=== PATIENT | male | born 1960 ===

== ENCOUNTER 2018-03-15 21:15 | Emergency (ER) | payer MEDICAID ==
[2018-03-15 21:18] VITALS: BMI 31.6
[2018-03-15] MEDS ORDERED: Sodium Chloride 0.9% 1,000 ML IV STA (22:08)
[2018-03-15] MEDS ORDERED: Famotidine 20mg/50ml Premix IVPB STA (22:10)
[2018-03-15] MEDS ORDERED: Famotidine 20mg/50ml 20 MG/50 ML BAG IVPB ONE (22:17)
--- NOTE | 2018-03-15 22:17 | ED PDOC ---
Syncope/Near Syncope/Dizziness Time Seen by Provider: 03/15/18 21:44 Chief Complaint (Nursing): Chest Pain Chief Complaint (Provider): Dizziness History Per: Patient History/Exam Limitations: no limitations Onset/Duration Of Symptoms: Hrs (today) Current Symptoms Are (Timing): Better Fall Associated With With Symptoms: No Additional Complaint(s): Saw Lee is a 57 year old male, with a past medical history of vertigo, diabetes and hypertension, who presents to the emergency department via EMS for dizziness like room spinning associated with light sensitivity onset prior to arrival. Patient reports he was eating at a restaurant when he suddenly felt dizzy and nauseous. Patient states dizziness is worst with movement. He is also complaining of upper abdominal pain and left shoulder pain which has improved since onset. Patient states he had a similar episode in the past and was told it was a mini stroke but was not placed on medications. 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 No further medical complaints. PMD: [facility] in [place]. NIH 0 and symptoms similar to his vertigo. Not tpa candidate. NIHSS Stroke Scale - Date/Time Evaluation Performed Date Performed: 03/15/18 Time Performed: 21:46 When Was NIHSS Performed: Baseline - How Severe is the Stroke Level of Consciousness: 0=Alert LOC to Questions: 0=Both comments correct LOC to commands: 0=Obeys both correctly Best Gaze: 0=Normal Visual: 0=No visual loss Facial: 0=Normal Motor Arm - Left: 0=No drift Motor Arm - Right: 0=No drift Motor Leg - Left: 0=No drift Motor Leg - Right: 0=No drift Limb Ataxia: 0=Absent Sensory: 0=Normal Best Language: 0=No aphasia Dysarthia: 0=Normal articulation Extinction & Inattention (Neglect): 0=Normal, no object Score: 0 Past Medical History Reviewed: Historical Data, Nursing Documentation, Vital Signs Vital Signs: Last Vital Signs Temp 98.3 F 03/15/18 21:20 Pulse 92 H 03/15/18 21:50 Resp 23 03/15/18 21:50 BP 158/102 H 03/15/18 21:50 Pulse Ox 96 03/15/18 21:50 - Medical History PMH: Diabetes, HTN - Surgical History Surgical History: No Surg Hx - Family History Family History: States: No Known Family Hx - Living Arrangements Living Arrangements: With Family - Social History Current smoker - smoking cessation education provided: No Alcohol: None Drugs: Denies - Allergies Allergies/Adverse Reactions: Allergies Allergy/AdvReac Type Severity Reaction Status Date / Time No Known Allergies Allergy Verified 03/15/18 21:18 Review of Systems ROS Statement: Except As Marked, All Systems Reviewed And Found Negative Cardiovascular: Negative for: Chest Pain Respiratory: Negative for: Shortness of Breath Gastrointestinal: Positive for: Nausea, Abdominal Pain. Negative for: Vomiting , Diarrhea Musculoskeletal: Positive for: Shoulder Pain (left ) Neurological: Positive for: Dizziness. Negative for: Weakness, Numbness (or tingling), Headache Physical Exam - Reviewed Nursing Documentation Reviewed: Yes Vital Signs Reviewed: Yes - Physical Exam Appears: Positive for: Non-toxic Head Exam: Positive for: ATRAUMATIC, NORMOCEPHALIC Skin: Positive for: Normal Color, Warm, Dry Eye Exam: Positive for: Normal appearance, EOMI, PERRL ENT: Positive for: Normal ENT Inspection. Negative for: Nasal Congestion Neck: Positive for: Painless ROM, Supple Cardiovascular/Chest: Positive for: Regular Rate, Rhythm. Negative for: Murmur Respiratory: Positive for: Normal Breath Sounds. Negative for: Respiratory Distress Gastrointestinal/Abdominal: Positive for: Soft, Tenderness (mild tenderness to upper abdomen) Back: Positive for: Normal Inspection. Negative for: L CVA Tenderness, R CVA Tenderness, Vertebral Tenderness Extremity: Positive for: Normal ROM (upper and lower extremities). Negative for : Tenderness, Deformity, Swelling Neurologic/Psych: Positive for: Alert, drug coordinator II-XII (normal), Oriented (x3). Negative for: Motor/Sensory Deficits, Aphasia, Facial Droop - Laboratory Results Result Diagrams: 03/15/18 23:22 03/15/18 23:22 Interpretation Of Abn Labs: 12.5 wbc - ECG ECG: Positive for: Interpreted By Me, Viewed By Me ECG Rhythm: Positive for: Sinus Rhythm (q waves inferior) O2 Sat by Pulse Oximetry: 96 (RA) Pulse Ox Interpretation: Normal - Radiology X-Ray: Interpreted by Me, Viewed By Me X-Ray Interpretation: No Acute Disease - CT Scan/US ct Other Rad Studies (CT/US): Read By Radiologist Other Rad Interpretation: no acute - Progress ED Course And Treament: 2355: Dr. Lee to fu on ct. Re-eval. Medical Decision Making Medical Decision Making: Time: 21:44 Initial Impression: Vertigo Initial Plan: --Type and screen --Head w/o contrast [CT] --EKG --CMP --Hemoglobin A1C --Lipase --Lipid Panel --Troponin I --CBC w/ differential --PTT --PT --Chest portable [RAD] --Antivert 25 mg PO --Sodium Chloride 1,000 ml IV 1,000 mls/hr --Pepcid 20 mg IVP --Zofran Inj 4 mg IV --Reevaluation 2308 CT HEAD FINDINGS: Brain: Unremarkable. No hemorrhage. No significant white matter disease. No edema. Ventricles: Unremarkable. No ventriculomegaly. Bones/joints: Unremarkable. No acute fracture. Soft tissues: Unremarkable. Sinuses: Unremarkable as visualized. No acute sinusitis. Mastoid air cells: Unremarkable as visualized. No mastoid effusion. IMPRESSION: No evidence of an acute intracranial abnormality ~ Scribe Attestation: Documented by Ricardo Mota and Angelica Ashford, acting as a scribe for Federico Moses MD. Provider Scribe Attestation: All medical record entries made by the Scribe were at my direction and personally dictated by me. I have reviewed the chart and agree that the record accurately reflects my personal performance of the history, physical exam, medical decision making, and the department course for this patient. I have also personally directed, reviewed, and agree with the discharge instructions and disposition. Disposition - Clinical Impression Clinical Impression: Abdominal pain, Dizziness - Patient ED Disposition Is Patient to be Admitted: Transfer of Care - Disposition Disposition: Transfer of Care Disposition Time: 00:05 Condition: STABLE Patient Signed Over To: Jesus,Vaughn rTPA Inclusion/Exclusion - Refusal of Treatment Patient Refused Treatment: No - Inclusion Criteria for Altepase Patient is 18 years or Older: Yes Clinical DX Ischemic Stroke Cause Neurological Deficit: No Time of Onset Established Less Than 270 Mins Before TX Begin: Yes Risk/Benefit Discussed With Patient/Family Member Present: No
--- NOTE | 2018-03-15 23:08 | CT ---
EXAM: CT Head Without Intravenous Contrast CLINICAL HISTORY: 57 years old, male; Pain; Headache; Other: High BP TECHNIQUE: Axial computed tomography images of the head/brain without intravenous contrast. All CT scans at this facility use one or more dose reduction techniques, viz.: automated exposure control; ma/kV adjustment per patient size (including targeted exams where dose is matched to indication; i.e. head); or iterative reconstruction technique. Coronal and sagittal reformatted images were created and reviewed. COMPARISON: No relevant prior studies available. FINDINGS: Brain: Unremarkable. No hemorrhage. No significant white matter disease. No edema. Ventricles: Unremarkable. No ventriculomegaly. Bones/joints: Unremarkable. No acute fracture. Soft tissues: Unremarkable. Sinuses: Unremarkable as visualized. No acute sinusitis. Mastoid air cells: Unremarkable as visualized. No mastoid effusion. IMPRESSION: No evidence of an acute intracranial abnormality.
[2018-03-15 23:31] LABS: BASO # 0.1 K/uL (0.0-0.2); BASO % 0.7 % (0.0-2.0); EOS # 0.1 K/uL (0.0-0.7); EOS % 0.7 % (0.0-4.0); HEMOGLOBIN 14.4 g/dL (12.0-18.0); LYMPH # 2.2 K/uL (1.0-4.3); LYMPH % 17.8 % (20.0-40.0); MEAN CELL VOLUME 85.5 fl (80.0-94.0); MEAN CORPUSCULAR HEMOGLOBIN 29.2 pg (27.0-31.0); MEAN CORPUSCULAR HGB CONC 34.1 g/dL (33.0-37.0); MEAN PLATELET VOLUME 8.4 fl (7.2-11.7); MONO # 0.9 K/uL (0.0-0.8); MONO % 6.8 % (0.0-10.0); NEUT # 9.3 K/uL (1.8-7.0); NRBC % 0.2 % (0.0-0.0); RBC 4.92 Mil/uL (4.40-5.90); WHITE BLOOD COUNT 12.5 K/uL (4.8-10.8)
[2018-03-15 23:40] LABS: ALB/GLOB RATIO 1.3 (1.0-2.1); ALBUMIN 4.3 g/dL (3.5-5.0); ALT/SGPT 57 U/L (21-72); AST/SGOT 36 U/L (17-59); BLOOD UREA NITROGEN 17 mg/dl (9-20); CALCIUM 9.3 mg/dL (8.4-10.2); GFR AFRICAN-AMERICAN > 60; GFR NON-AFRICAN AMERICAN > 60; HDL CHOLESTEROL 18 MG/DL (30-70); LIPASE 67 U/L (23-300)
[2018-03-15 23:46] LABS: PARTIAL THROMBOPLASTIN TIME 28.9 Seconds (25.6-37.1); PROTHROMBIN TIME 11.1 Seconds (9.8-13.1)
[2018-03-15 23:52] LABS: LDL CHOLESTEROL 45 mg/dL (0-129)
[2018-03-16] MEDS ORDERED: Iohexol 240 (50 ml) PO ONE (00:03)
--- NOTE | 2018-03-16 00:22 | ED PDOC ---
- Laboratory Results Result Diagrams: 03/15/18 23:22 03/15/18 23:22 - ECG O2 Sat by Pulse Oximetry: 96 (RA) Medical Decision Making Medical Decision Makin Patient signed out to this provider from Dr. Moses pending CT, re-eval, and final disposition. 0341 CT FINDINGS: Lung bases: There is minimal bibasilar atelectasis. ABDOMEN: Liver: There is a diffuse decrease in hepatic parenchymal density, consistent with fatty infiltration. There is diffuse mild enlargement of the liver measuring 21 cm. Gallbladder and bile ducts: Unremarkable. No calcified stones. No ductal dilation. Pancreas: Unremarkable. No mass. No ductal dilation. Spleen: Unremarkable. No splenomegaly. Adrenals: Unremarkable. No mass. Kidneys and ureters: Unremarkable. No solid mass. No hydronephrosis. Stomach and bowel: No obstruction. No mucosal thickening. Mild diverticulosis is present in the sigmoid and descending colon. There is no evidence of diverticulitis. PELVIS: Appendix: No findings to suggest acute appendicitis. The appendix is mildly distended with gas measuring up to 7 mm.There is no evidence of adjacent inflammatory stranding. Bladder: Unremarkable. No mass. Reproductive: Unremarkable as visualized. ABDOMEN and PELVIS: Intraperitoneal space: Unremarkable. No free air. No significant fluid collection. Bones/joints: No acute fracture. No dislocation. Soft tissues: Unremarkable. Vasculature: The aorta demonstrates mild atherosclerotic calcification. No abdominal aortic aneurysm. Lymph nodes: Unremarkable. No enlarged lymph nodes. IMPRESSION: No acute findings. Mild nonspecific hepatomegaly with fatty infiltration. Diverticulosis without acute diverticulitis 0350 Upon re-evaluation patient is feeling much better. Patient is able to ambulate around ED and notes no symptoms currently. Patient is tolerating PO and vital signs have improved. Advised follow up with PCP in 1-2 days. Return precautions given and patient verbalized agreement. Patient is stable for discharge home. Dx: vertigo Scribe Attestation: Documented by Angelica Ashford acting as a scribe for Vaughn Lee MD. MD Monroyibshar Attestation: All medical record entries made by the Scribe were at my direction and personally dictated by me. I have reviewed the chart and agree that the record accurately reflects my personal performance of the history, physical exam, medical decision making, and the department course for this patient. I have also personally directed, reviewed, and agree with the discharge instructions and disposition. Disposition - Clinical Impression Clinical Impression: Abdominal pain, Dizziness, Vertigo - POA Present On Arrival: None - Disposition Referrals: Ramiro Gonzalez [Outside] Disposition: Routine/Home Disposition Time: 03:50 Condition: IMPROVED Prescriptions: Meclizine [Meclizine*] 25 mg PO Q6 #30 tab Instructions: Vertigo (a Type of Dizziness), Acute Abdomen (Belly Pain) Forms: [facility] (Japanese), [facility] (Anguillan) Print Language: PAKISTANI
[2018-03-16] MEDS ORDERED: Iohexol 240 (50 ml) ONE (00:59)
[2018-03-16] MEDS ORDERED: Iohexol 300 100 ML IJ ONE (02:24)
[2018-03-16] MEDS ORDERED: Sodium Chloride 0.9% 50 ML IV ONE (02:24)
--- NOTE | 2018-03-16 03:41 | CT ---
EXAM: CT Abdomen and Pelvis With Intravenous Contrast CLINICAL HISTORY: 57 years old, male; Pain; Abdominal pain; Generalized; Additional info: Abd pain TECHNIQUE: Axial computed tomography images of the abdomen and pelvis with intravenous contrast. All CT scans at this facility use one or more dose reduction techniques, viz.: automated exposure control; ma/kV adjustment per patient size (including targeted exams where dose is matched to indication; i.e. head); or iterative reconstruction technique. Coronal and sagittal reformatted images were created and reviewed. CONTRAST: 90 mL of [id number] administered intravenously. COMPARISON: No relevant prior studies available. FINDINGS: Lung bases: There is minimal bibasilar atelectasis. ABDOMEN: Liver: There is a diffuse decrease in hepatic parenchymal density, consistent with fatty infiltration. There is diffuse mild enlargement of the liver measuring 21 cm. Gallbladder and bile ducts: Unremarkable. No calcified stones. No ductal dilation. Pancreas: Unremarkable. No mass. No ductal dilation. Spleen: Unremarkable. No splenomegaly. Adrenals: Unremarkable. No mass. Kidneys and ureters: Unremarkable. No solid mass. No hydronephrosis. Stomach and bowel: No obstruction. No mucosal thickening. Mild diverticulosis is present in the sigmoid and descending colon. There is no evidence of diverticulitis. PELVIS: Appendix: No findings to suggest acute appendicitis. The appendix is mildly distended with gas measuring up to 7 mm.There is no evidence of adjacent inflammatory stranding. Bladder: Unremarkable. No mass. Reproductive: Unremarkable as visualized. ABDOMEN and PELVIS: Intraperitoneal space: Unremarkable. No free air. No significant fluid collection. Bones/joints: No acute fracture. No dislocation. Soft tissues: Unremarkable. Vasculature: The aorta demonstrates mild atherosclerotic calcification. No abdominal aortic aneurysm. Lymph nodes: Unremarkable. No enlarged lymph nodes. IMPRESSION: No acute findings. Mild nonspecific hepatomegaly with fatty infiltration. Diverticulosis without acute diverticulitis.
[2018-03-16 04:20] VITALS: BP 136/84; PULSE 73; RESP 16; TEMP 97.6
[2018-03-16 04:36] VITALS: O2SAT 96
--- NOTE | 2018-03-16 09:44 | RAD ---
HISTORY: dizziness COMPARISON: No prior. FINDINGS: LUNGS: No active pulmonary disease. PLEURA: No significant pleural effusion identified, no pneumothorax apparent. CARDIOVASCULAR: Cardiomediastinal silhouette appears prominent; however, this cannot be accurately assessed on an AP projection. OSSEOUS STRUCTURES: Mild degenerative changes. VISUALIZED UPPER ABDOMEN: Normal. OTHER FINDINGS: None. IMPRESSION: No active disease.
--- NOTE | 2018-03-16 10:22 | CARD ---
APPROVED REPORT EKG Measurement Heart [id number] <Conclusion> Normal sinus rhythm
== END 2018-03-16 04:22 | disposition home or self-care (01) ==
LOC: H.ER 21:15
DX: R42 Dizziness and giddiness (principal); I10 Essential (primary) hypertension; E11.9 Type 2 diabetes mellitus without complications
CPT/HCPCS: 70450; 71045; 74177; 80053; 80061; 82948; 83036; 83690; 84484; 85025; 85610; 85730; 86850; 86900; 93005; 99285; J2405; J7030; Q9966; Q9967